=== PATIENT | female | born 1995 | race Caucasian/White ===

== ENCOUNTER 2016-12-16 17:14 | Emergency (ER) | payer MEDICAID ==
[2016-12-16 17:19] VITALS: RESP 16
--- NOTE | 2016-12-16 18:04 | EDPHY ---
H & P Stated Complaint: L flank pain since yesterday, nausea, vaginal discharge Time Seen by Provider: 12/16/16 18:04 - Personal History LMP (Females 10-55): Extended Cycle BCP/Inj Current Tetanus/Diphtheria Vaccine: Yes Current Tetanus Diphtheria and Acellular Pertussis (TDAP): Yes Tetanus Vaccine Date: < 10 years - Medical/Surgical History Hx Asthma: Yes Hx Chronic Respiratory Disease: No Hx Diabetes: No Hx Cardiac Disease: No Hx Renal Disease: No Hx Cirrhosis: No Hx Alcoholism: No Hx HIV/AIDS: No Hx Splenectomy or Spleen Trauma: No Other PMH: asthma - Social History Smoking Status: Former smoker Constitutional: Initial Vital Signs Temperature (C) 36.6 C 12/16/16 17:16 Heart Rate 78 12/16/16 17:16 Respiratory Rate 16 12/16/16 17:16 Blood Pressure 123/84 H 12/16/16 17:16 O2 Sat (%) 98 12/16/16 17:16 O2 Delivery Mode Room Air Allergies/Adverse Reactions: cashew nut Allergy (Verified 12/16/16 17:20) pistachio nut Allergy (Verified 12/16/16 17:20) Home Medications: Medication Instructions Recorded EPINEPHRINE [EPIPEN] 0.3 mg IM ONCE #2 syr 02/25/16 Depo-Provera 12/16/16 Medical Decision Making ED Course/Re-evaluation: CHIEF COMPLAINT: Left flank pain HISTORY OF PRESENT ILLNESS: This patient is a 21 year old female who presents to the Emergency Department complaining of acute left flank pain beginning yesterday and waxing and waning since. The pain is localized over her left flank with radiation to her left abdomen. She denies dysuria, urinary urgency, or hematuria. She reports black discharge in her underwear this morning; she uses depo shot for control and states that she does not regularly get her period due to this. She has a history of UTIs but has not had one recently. No additional pertinent medical history. REVIEW OF SYSTEMS: A 10 point review of systems was performed and is negative with the exception of the elements mentioned in the history of present illness. PHYSICAL EXAM: HR 78, BP 123/84, O2 Sat 98%, RR 16. Temp noted General Appearance: Alert, well hydrated, appropriate, and non-toxic appearing. Head: Atraumatic without scalp tenderness or obvious injury Eyes: Pupils equal, round, reactive to light and accommodation, EOMI, no trauma , no injection. Ears: Clear bilaterally, no perforation, normal landmarks Nose: Atraumatic, no rhinorrhea, clear. Throat: There is no erythema or exudates, no lesions, normal tonsils, mucus membranes moist. Neck: Supple, 2+ carotid upstroke, nontender, no lymphadenopathy. Respiratory: No retractions, no distress, no wheezes, and no accessory muscle use. Lungs are clear to auscultation bilaterally. Cardiovascular: Regular rate and rhythm, no murmurs, rubs, or gallops. Bilateral carotid, radial, dorsalis pedis, and posterior tibial pulses intact. Good capillary refill all extremities. Gastrointestinal: Abdomen is soft, nontender, non-distended, no masses, no rebound, no guarding, no peritoneal signs. Musculoskeletal: Normal active ROM of all extremities, atraumatic. Mild tenderness to the left flank with percussion. Neurological: Alert, appropriate, and interactive. The patient has normal DTRs and non-focal cranial nerves, motor, sensory, and cerebellar exam. Skin: No rashes, good turgor, no nodules on palpation. Past medical history: Denies. Past surgical history: Denies. Family history: Kidney stones in mother. Social history: Former smoker. Mother at bedside. Works as EMT. DIAGNOSTICS/PROCEDURES/CRITICAL CARE TIME: IMAGING: Study: Ultrasound of the right kidney Indication: Flank pain Results: Ultrasound of the right kidney was obtained. The results of the study are: 1. Negative for hydronephrosis or evidence of left-sided obstructive uropathy. 2. A solid nodular area is seen cephalad to the upper pole of the left kidney, which could represent an accessory spleen or be related to an adrenal enlargement. This could be further evaluated with a contrast-enhanced CT scan. The study was read by the radiologist, Dr. Casper Cruz. I viewed the images myself on the PACS system. Study: CT of the abdomen and pelvis Indication: Abnormal finding on US Results:CT of the abdomen and pelvis was obtained. 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 The study was read by the radiologist, Dr. Casper Cruz. I viewed the images myself on the PACS system. DIFFERENTIAL DIAGNOSIS: Differential diagnosis for the patient's left flank pain includes but is not limited to: UTI, kidney stone, musculoskeletal pain. MEDICAL DECISION MAKING: This patient is a normally healthy 21 year old female who presents complaining of left flank pain. She has no additional urinary symptoms. On exam, she reports mild left flank pain tenderness to percussion. Familial history is significant for kidney stones in mother. Will proceed with UA prior to imaging. UA is negative for blood or infection. Labs are unremarkable. 1929: Ultrasound results reported to me by Dr. Casper Cruz. Will proceed with CT of the abdomen and pelvis with oral contrast. I discussed this with the patient and obtained her consent for imaging. 2121: CT results reported to me by Dr. Casper Cruz and reassuring. I discussed results with the patient as well as plan to discharge home with return precautions and instructions to follow-up with her PCP. She is agreeable to this and will be sent home in good condition. - Data Points Laboratory Results: Laboratory Results 12/16/16 19:20 12/16/16 19:20 12/16/16 12/16/16 12/16/16 20:01 19:20 19:20 WBC 8.12 10^3/uL 10^3/uL (3.80-9.50) RBC 5.05 10^6/uL 10^6/uL (4.18-5.33) Hgb 13.6 g/dL g/dL (12.6-16.3) Hct 40.8 % % (38.0-47.0) MCV 80.8 fL L fL (81.5-99.8) MCH 26.9 pg L pg (27.9-34.1) MCHC 33.3 g/dL g/dL (32.4-36.7) RDW 14.5 % % (11.5-15.2) Plt Count 311 10^3/uL 10^3/uL (150-400) MPV 9.2 fL fL (8.7-11.7) Neut % (Auto) 69.2 % % (39.3-74.2) Lymph % (Auto) 23.5 % % (15.0-45.0) [place] % (Auto) 5.0 % % (4.5-13.0) Eos % (Auto) 1.5 % % (0.6-7.6) Baso % (Auto) 0.6 % % (0.3-1.7) Nucleat RBC Rel Count 0.0 % % (0.0-0.2) Absolute Neuts (auto) 5.61 10^3/uL 10^3/uL (1.70-6.50) Absolute Lymphs (auto) 1.91 10^3/uL 10^3/uL (1.00-3.00) Absolute Monos (auto) 0.41 10^3/uL 10^3/uL (0.30-0.80) Absolute Eos (auto) 0.12 10^3/uL 10^3/uL (0.03-0.40) Absolute Basos (auto) 0.05 10^3/uL 10^3/uL (0.02-0.10) Absolute Nucleated RBC 0.00 10^3/uL 10^3/uL (0-0.01) Immature Gran % 0.2 % % (0.0-1.1) Immature Gran # 0.02 10^3/uL 10^3/uL (0.00-0.10) Sodium 140 mEq/L mEq/L (134-144) Potassium 5.4 mEq/L H mEq/L (3.5-5.2) Chloride 106 mEq/L mEq/L (97-110) Carbon Dioxide 17 mEq/l L mEq/l (22-31) Anion Gap 17 mEq/L H mEq/L (8-16) BUN 18 mg/dL mg/dL (7-23) Creatinine 0.6 mg/dL mg/dL (0.6-1.0) Estimated GFR > 60 Glucose 77 mg/dL mg/dL (70-100) Calcium 9.8 mg/dL mg/dL (8.5-10.4) Beta HCG, Qual NEGATIVE Urine Color Urine Appearance Urine pH Ur Specific [place] Urine Protein Urine Ketones Urine Blood Urine Nitrate Urine Bilirubin Urine Urobilinogen Ur Leukocyte Esterase Ur Culture Indicated? Urine Glucose 12/16/16 18:55 WBC RBC Hgb Hct MCV MCH MCHC RDW Plt Count MPV Neut % (Auto) Lymph % (Auto) [place] % (Auto) Eos % (Auto) Baso % (Auto) Nucleat RBC Rel Count Absolute Neuts (auto) Absolute Lymphs (auto) Absolute Monos (auto) Absolute Eos (auto) Absolute Basos (auto) Absolute Nucleated RBC Immature Gran % Immature Gran # Sodium Potassium Chloride Carbon Dioxide Anion Gap BUN Creatinine Estimated GFR Glucose Calcium Beta HCG, Qual Urine Color PALE YELLOW Urine Appearance CLEAR Urine pH 5.0 (5.0-7.5) Ur Specific [place] 1.016 (1.002-1.030) Urine Protein NEGATIVE (NEGATIVE) Urine Ketones TRACE H (NEGATIVE) Urine Blood NEGATIVE (NEGATIVE) Urine Nitrate NEGATIVE (NEGATIVE) Urine Bilirubin NEGATIVE (NEGATIVE) Urine Urobilinogen NEGATIVE EU EU (0.2-1.0) Ur Leukocyte Esterase NEGATIVE (NEGATIVE) Ur Culture Indicated? NOT INDICATED (NI) Urine Glucose NEGATIVE (NEGATIVE) Medications Given: Discontinued Medications Diatrizoate Meglum/Diatrizoate Sod (Gastroview 66-10 Soln) 30 ml PO EDNOW ONE Stop: 12/16/16 19:34 Last Admin: 12/16/16 20:00 Dose: 30 ml Sodium Chloride (Ns) 1,000 mls @ 0 mls/hr IV ONCE ONE PRN Reason: Wide Open Stop: 12/16/16 18:40 Last Admin: 12/16/16 20:47 Dose: 1,000 mls Sodium Chloride (Ns) 1,000 mls @ 0 mls/hr IV ONCE ONE PRN Reason: Wide Open Stop: 12/16/16 18:40 Last Admin: 12/16/16 19:25 Dose: 1,000 mls Departure - Departure Disposition: Home, Routine, Self-Care Clinical Impression: Flank pain Condition: Good Instructions: Flank Pain (ED) Additional Instructions: 1. Your imaging was negative for kidney stone. Your labs and urinalysis did not indicate an infection. We recommend following up with your primary care provider if your symptoms do not improve over the next 2-3 days. 2. Return to the Emergency Department with severe pain, fever or chills, blood in your urine, or other serious concerns. Referrals: Malena Garcia MD [Primary Care Provider] - As per Instructions Report Scribed for: Luis M Sevilla Report Scribed by: Sierra Hayward Date of Report: 12/16/16 Time of Report: 18:13
[2016-12-16] MEDS ORDERED: NS 1,000 ML IV ONE ×2 (18:39)
[2016-12-16 19:02] LABS: COLOR PALE YELLOW; LEUKOCYTE ESTERASE,URINE NEGATIVE (NEGATIVE); NITRITE,URINE NEGATIVE (NEGATIVE)
[2016-12-16 19:27] LABS: % IMMATURE GRANULYOCYTES 0.2 % (0.0-1.1); ABSOLUTE IMMATURE GRANULOCYTES 0.02 10^3/uL (0.00-0.10); ADD DIFF? NO; ADD MORPH? NO; ADD SCAN? NO; ATYPICAL LYMPHOCYTE FLAG 10 (0-99); FRAGMENT RBC FLAG 0 (0-99); HEMATOCRIT 40.8 % (38.0-47.0); HEMOGLOBIN 13.6 g/dL (12.6-16.3); LEFT SHIFT FLG 0 (0-99); LIPEMIA HEMOLYSIS FLAG 80 (0-99); MEAN CELL HEMOGLOBIN 26.9 pg (27.9-34.1); MEAN CELL HEMOGLOBIN CONCENTR. 33.3 g/dL (32.4-36.7); MEAN CELL VOLUME 80.8 fL (81.5-99.8); MEAN PLATELET VOLUME 9.2 fL (8.7-11.7); PLATELET CLUMPS FLAG 60 (0-99); PLATELET COUNT 311 10^3/uL (150-400); RED BLOOD CELL COUNT 5.05 10^6/uL (4.18-5.33); RED CELL DISTRIBUTION WIDTH 14.5 % (11.5-15.2)
[2016-12-16] MEDS ORDERED: GASTROVIEW 30 ML UNIT PO ONE (19:33)
[2016-12-16 19:45] LABS: ANION GAP 17 mEq/L (8-16); CALCIUM 9.8 mg/dL (8.5-10.4); CARBON DIOXIDE 17 mEq/l (22-31); CHLORIDE 106 mEq/L (97-110); CREATININE 0.6 mg/dL (0.6-1.0); GLOMERULAR FILTRATION RATE > 60; GLUCOSE 77 mg/dL (70-100); POTASSIUM 5.4 mEq/L (3.5-5.2); SODIUM 140 mEq/L (134-144)
[2016-12-16] MEDS ORDERED: IOPAMIDOL (ISOVUE-300) 100 ML BTL IV ONE (20:44)
[2016-12-16 21:41] VITALS: O2SAT 96
[2016-12-16 21:48] VITALS: BP 108/68; PULSE 77; TEMP 98.2
== END 2016-12-16 21:48 | disposition home or self-care (01) ==
DX: R10.9 Unspecified abdominal pain (principal); J45.909 Unspecified asthma, uncomplicated; Z87.891 Personal history of nicotine dependence
CPT/HCPCS: Q9967